=== PATIENT | male | born 1945 | race Caucasian/White ===

== ENCOUNTER 2018-02-10 15:48 | Emergency (ER) | payer OTHER ==
[~2018-02-10] VITALS: Ht 172.7 cm; Wt 78.5 kg
[~2018-02-10 15:48] MED LIST: ASPIR-LOW81 MG; AZOPT5 ML; BRIMONIDINE TAR10 ML; LISINOPRIL10 MG; LOTRIMIN TP; LUMIGAN2.5 ML OP; METFORMIN HCL500 MG PO; NABUMETONE500 MG; OSEL75CA PO; PROVENTIL3 ML/2.5 M IH; SIMVASTATIN20 MG; ZYNCOF 20-400120 ML PO
== END 2018-02-10 18:06 | disposition home or self-care (01) ==
LOC: ER 15:48
DX: S40.011A Contusion of right shoulder, initial encounter (principal); S00.83XA Contusion of other part of head, initial encounter; W18.39XA Other fall on same level, initial encounter; Y93.89 Activity, other specified; Y92.89 Other specified places as the place of occurrence of the external cause; Y99.8 Other external cause status

== ENCOUNTER 2020-01-12 16:58 | Emergency (ER) | payer OTHER ==
[~2020-01-12] VITALS: Ht 172.7 cm; Wt 74.8 kg
== END 2020-01-12 20:00 | disposition home or self-care (01) ==
LOC: ER 16:58
DX: R42 Dizziness and giddiness (principal); S06.0X0S Concussion without loss of consciousness, sequela; S10.83XS Contusion of other specified part of neck, sequela; W22.8XXS Striking against or struck by other objects, sequela

== ENCOUNTER 2020-09-20 09:03 | Emergency (ER) | payer OTHER ==
[~2020-09-20] VITALS: Ht 172.7 cm; Wt 77.1 kg
== END 2020-09-20 13:40 | disposition designated cancer center or children's hospital (05) ==
LOC: ER 09:03
DX: I63.89 Other cerebral infarction (principal); I10 Essential (primary) hypertension; R06.02 Shortness of breath

== ENCOUNTER 2020-10-17 09:57 | Emergency (ER) | payer OTHER ==
[~2020-10-17] VITALS: Ht 172.7 cm; Wt 68.0 kg
== END 2020-10-17 13:29 | disposition home or self-care (01) ==
LOC: ER 09:57
DX: R06.02 Shortness of breath (principal); I69.322 Dysarthria following cerebral infarction; I69.398 Other sequelae of cerebral infarction; I10 Essential (primary) hypertension; Z03.818 Encounter for observation for suspected exposure to other biological agents ruled out

== ENCOUNTER 2020-12-02 11:16 | Emergency (ER) | payer OTHER ==
[~2020-12-02] VITALS: Ht 172.7 cm; Wt 68.0 kg
[2020-12-02] MEDS ORDERED: PLAVIX75 MG PO (11:25)
[2020-12-02] MEDS ORDERED: COZAAR50 MG PO (11:26)
== END 2020-12-02 21:53 | disposition home or self-care (01) ==
LOC: ER 11:16
DX: S80.01XA Contusion of right knee, initial encounter (principal); M12.561 Traumatic arthropathy, right knee; W22.8XXA Striking against or struck by other objects, initial encounter; Y93.89 Activity, other specified; Y92.89 Other specified places as the place of occurrence of the external cause; Y99.8 Other external cause status

== ENCOUNTER 2021-04-03 10:27 | Emergency (ER) | payer OTHER ==
[~2021-04-03] VITALS: Ht 172.7 cm; Wt 68.0 kg
[~2021-04-03 10:27] MED LIST changes: +COZAAR50 MG PO; +PLAVIX75 MG PO
== END 2021-04-03 15:51 | disposition home or self-care (01) ==
LOC: ER 10:27
DX: M24.662 Ankylosis, left knee (principal); M13.862 Other specified arthritis, left knee; M25.562 Pain in left knee; Z74.01 Bed confinement status

== ENCOUNTER 2023-06-07 11:48 | Emergency (ER) | payer OTHER ==
[~2023-06-07] VITALS: Ht 172.7 cm; Wt 68.0 kg
[2023-06-07 12:24] LABS: HEMATOCRIT 46.4 % (39.0-48.0); MEAN CELL VOLUME 86.9 fL (80.0-100.00); MEAN CORPUSCULAR HGB CONC 34.5 g/dl (32.0-36.0); RED BLOOD COUNT 5.34 M/uL (4.00-6.00); RED CELL DISTRIBUTION WIDTH 14.1 % (11.5-14.5)
[2023-06-07 12:25] LABS: PLATELET COUNT 124 K/uL (150-450)
[2023-06-07 12:49] LABS: ALBUMIN 3.1 gm/dL (3.4-5.0); BILIRUBIN TOTAL 0.65 mg/dL (0.3-1.2); CALCIUM 8.9 mg/dL (8.5-10.1); CREATININE SERUM 0.73 mg/dL (0.70-1.30); GFR 104.74; GLOBULINA 3.9 G/DL (2.4-3.5); POTASSIUM 3.87 mEq/L (3.5-5.1)
[2023-06-07] MEDS ORDERED: PAXLOVID 300-11 EACH PO (13:27)
== END 2023-06-07 16:11 | disposition home or self-care (01) ==
LOC: ER 11:48
PROVIDERS: General Practice
DX: U07.1 COVID-19 (principal); Z86.73 Personal history of transient ischemic attack (TIA), and cerebral infarction without residual deficits; I10 Essential (primary) hypertension
CPT/HCPCS: 36415; 71250; 96365; 99284; J2930

== ENCOUNTER 2023-06-23 08:18 | Inpatient (IN) | payer OTHER ==
[~2023-06-23] VITALS: Ht 172.7 cm; Wt 68.0 kg
[~2023-06-23 08:18] MED LIST changes: +PAXLOVID 300-11 EACH PO
[2023-06-23 10:22] LABS: HEMATOCRIT 47.3 % (39.0-48.0); MEAN CELL VOLUME 87.4 fL (80.0-100.00); MEAN CORPUSCULAR HEMOGLOBIN 29.6 pg (27.00-32.0); MEAN CORPUSCULAR HGB CONC 33.9 g/dl (32.0-36.0); PLATELET COUNT 165 K/uL (150-450); RED BLOOD COUNT 5.42 M/uL (4.00-6.00); RED CELL DISTRIBUTION WIDTH 13.7 % (11.5-14.5)
[2023-06-23 10:50] LABS: INR 1.04; PARTIAL THROMBOPLASTIN TIME 30.8 SECONDS (22.0-34.0); PROTHROMBIN TIME 10.9 SECONDS (9.0-11.5)
[2023-06-23 11:08] LABS: CALCIUM 8.7 mg/dL (8.5-10.1); CREATININE SERUM 0.67 mg/dL (0.70-1.30); GFR 115.64; MAGNESIUM 2.1 mg/dL (1.8-2.4); POTASSIUM 3.59 mEq/L (3.5-5.1)
[2023-06-23 11:11] LABS: PHOSPHOROUS 1.7 mg/dL (2.5-4.9)
[2023-06-23 21:01] LABS: PH,URINE 5.5 (5.0-8.0); URINE APPEARANCE Clear; URINE BILIRRUBIN Negative (NEGATIVE); URINE COLOR Yellow; URINE GLUCOSE Negative (NEGATIVE); URINE LEUKOCYTE Negative; URINE NITRATE Negative; URINE PROTEIN Trace (NEGATIVE)
[2023-06-23 21:04] LABS: URINE BACTERIA 64.2 uL (0.0-1933); URINE EPITHELIAL CELLS 6.8 uL (0.0-38.8); URINE RBC 26.7 uL (0.0-20.8); URINE WBC 9.7 uL (0.0-23.2)
[2023-06-23 21:05] LABS: URINE BLOOD Trace
[2023-06-24 14:36] LABS: HEMATOCRIT 45.2 % (39.0-48.0); HEMOGLOBIN 15.2 g/dL (13-16.00); MEAN CELL VOLUME 86.5 fL (80.0-100.00); MEAN CORPUSCULAR HEMOGLOBIN 29.1 pg (27.00-32.0); MEAN CORPUSCULAR HGB CONC 33.7 g/dl (32.0-36.0); PLATELET COUNT 158 K/uL (150-450); RED BLOOD COUNT 5.23 M/uL (4.00-6.00); RED CELL DISTRIBUTION WIDTH 14.1 % (11.5-14.5)
[2023-06-24 20:45] LABS: HEMATOCRIT 42.4 % (39.0-48.0); HEMOGLOBIN 14.3 g/dL (13-16.00); MEAN CELL VOLUME 86.2 fL (80.0-100.00); MEAN CORPUSCULAR HGB CONC 33.6 g/dl (32.0-36.0); PLATELET COUNT 157 K/uL (150-450); RED BLOOD COUNT 4.93 M/uL (4.00-6.00); RED CELL DISTRIBUTION WIDTH 14.1 % (11.5-14.5)
[2023-06-24 21:10] LABS: ALBUMIN 2.9 gm/dL (3.4-5.0); BILIRUBIN TOTAL 1.27 mg/dL (0.3-1.2); CALCIUM 8.1 mg/dL (8.5-10.1); CKMB 2.2 NG/ML (0.5-3.6); CREATININE SERUM 0.78 mg/dL (0.70-1.30); GFR 97.03; GLOBULINA 2.9 G/DL (2.4-3.5); MAGNESIUM 1.7 mg/dL (1.8-2.4); PHOSPHOROUS 2.7 mg/dL (2.5-4.9); POTASSIUM 4.09 mEq/L (3.5-5.1); TOTAL PROTEIN 5.8 gm/dL (6.4-8.2)
[2023-06-25 06:54] LABS: CKMB 2.2 NG/ML (0.5-3.6)
[2023-06-27 07:54] LABS: HEMATOCRIT 44.2 % (39.0-48.0); MEAN CELL VOLUME 87.6 fL (80.0-100.00); MEAN CORPUSCULAR HEMOGLOBIN 29.7 pg (27.00-32.0); MEAN CORPUSCULAR HGB CONC 33.8 g/dl (32.0-36.0); PLATELET COUNT 140 K/uL (150-450); RED BLOOD COUNT 5.05 M/uL (4.00-6.00); RED CELL DISTRIBUTION WIDTH 13.4 % (11.5-14.5)
== END 2023-06-27 21:15 | disposition home or self-care (01) | DRG 282 ==
LOC: ER 08:18 → MEDJ 19:33
PROVIDERS: Emergency Medicine; General Practice; Internal Medicine; ADMIT Internal Medicine; ATTEND Internal Medicine
PROC: BR20ZZZ Computerized Tomography (CT Scan) of Cervical Spine (ICD-10-PCS; principal; 2023-06-23)
PROC: BW28ZZZ Computerized Tomography (CT Scan) of Head (ICD-10-PCS; 2023-06-23)
PROC: B24BZZZ Ultrasonography of Heart with Aorta (ICD-10-PCS; 2023-06-23)
PROC: 4A12X4Z Monitoring of Cardiac Electrical Activity, External Approach (ICD-10-PCS; 2023-06-23)
PROC: BW24ZZZ Computerized Tomography (CT Scan) of Chest and Abdomen (ICD-10-PCS; 2023-06-25)
DX: I21.A1 Myocardial infarction type 2 (principal); R56.9 Unspecified convulsions; I11.9 Hypertensive heart disease without heart failure; Z20.822 Contact with and (suspected) exposure to COVID-19; G30.9 Alzheimer's disease, unspecified; F02.80 Dementia in other diseases classified elsewhere, unspecified severity, without behavioral disturbance, psychotic disturbance, mood disturbance, and anxiety; Z74.01 Bed confinement status; E78.5 Hyperlipidemia, unspecified

== ENCOUNTER 2024-05-12 10:13 | Emergency (ER) | payer OTHER ==
[~2024-05-12] VITALS: Ht 167.6 cm; Wt 61.2 kg
[2024-05-12] MEDS ORDERED: PEPCID AC20 MG PO (10:33)
[2024-05-12 13:34] LABS: HEMATOCRIT 47.4 % (39.0-48.0); HEMOGLOBIN 15.7 g/dL (13-16.00); PLATELET COUNT 136 K/uL (150-450); RED BLOOD COUNT 5.39 M/uL (4.00-6.00); RED CELL DISTRIBUTION WIDTH 14.2 % (11.5-14.5)
[2024-05-12 13:42] LABS: CALCIUM 8.4 mg/dL (8.5-10.1); CREATININE SERUM 0.71 mg/dL (0.70-1.30); GFR 107.86; POTASSIUM 4.29 mEq/L (3.5-5.1)
[2024-05-12 13:53] LABS: URINE APPEARANCE Clear; URINE BILIRRUBIN Negative (NEGATIVE); URINE BLOOD Negative; URINE COLOR Yellow; URINE GLUCOSE Negative (NEGATIVE); URINE KETONE Negative (NEGATIVE); URINE LEUKOCYTE Negative; URINE NITRATE Negative; URINE PROTEIN Negative (NEGATIVE)
[2024-05-12 13:56] LABS: URINE BACTERIA 7.5 uL (0.0-1933); URINE RBC 28.5 uL (0.0-20.8); URINE WBC 3.5 uL (0.0-23.2)
[2024-05-12 14:13] LABS: URINE CAST 0.15 uL (0.0-1.40); URINE EPITHELIAL CELLS 0.4 uL (0.0-38.8)
== END 2024-05-12 17:21 | disposition home or self-care (01) ==
LOC: ER 10:13
PROVIDERS: General Practice
DX: R53.81 Other malaise (principal); J40 Bronchitis, not specified as acute or chronic; B34.9 Viral infection, unspecified; Z20.822 Contact with and (suspected) exposure to COVID-19; I10 Essential (primary) hypertension; E11.9 Type 2 diabetes mellitus without complications; Z79.84 Long term (current) use of oral hypoglycemic drugs

== ENCOUNTER 2024-05-26 02:03 | Emergency (ER) | payer OTHER ==
[~2024-05-26] VITALS: Ht 172.7 cm; Wt 68.0 kg
[~2024-05-26 02:03] MED LIST changes: +PEPCID AC20 MG PO
[2024-05-26] MEDS ORDERED: KEPPRA XR500 MG PO (02:47)
[2024-05-26] MEDS ORDERED: BENZONATATE100 MG PO (02:48)
[2024-05-26] MEDS ORDERED: SIMVASTATIN20 MG PO (02:48)
[2024-05-26] MEDS ORDERED: RINGERS SOLUTION,LACTATED 1,000 ML IV STA (04:45)
[2024-05-26] MEDS ORDERED: MEPERIDINE HCL/PF 25 MG/ML VIAL IM STA (04:46)
[2024-05-26] MEDS ORDERED: PROMETHAZINE HCL 25 MG/ML AMPUL IM STA (04:47)
[2024-05-26] MEDS ORDERED: HYOSCYAMINE SULFATE 0.125 MG TAB.SUBL SL ONE (05:00)
[2024-05-26 06:16] LABS: HEMATOCRIT 52.3 % (39.0-48.0); HEMOGLOBIN 17.5 g/dL (13-16.00); MEAN CELL VOLUME 87.4 fL (80.0-100.00); MEAN CORPUSCULAR HEMOGLOBIN 29.3 pg (27.00-32.0); MEAN CORPUSCULAR HGB CONC 33.5 g/dl (32.0-36.0); PLATELET COUNT 176 K/uL (150-450); RED BLOOD COUNT 5.99 M/uL (4.00-6.00); RED CELL DISTRIBUTION WIDTH 14.1 % (11.5-14.5)
[2024-05-26 06:35] LABS: CALCIUM 9.3 mg/dL (8.5-10.1); CREATININE SERUM 0.87 mg/dL (0.70-1.30); GFR 85.32; POTASSIUM 4.75 mEq/L (3.5-5.1)
[2024-05-26] MEDS ORDERED: PIPERACILLIN/TAZOBACTAM SODIUM 3.375 GM VIAL IV STA (07:02)
[2024-05-26 16:22] LABS: PH,URINE 6.5 (5.0-8.0); URINE APPEARANCE Clear; URINE BILIRRUBIN Negative (NEGATIVE); URINE BLOOD Small; URINE COLOR Yellow; URINE GLUCOSE Negative (NEGATIVE); URINE KETONE Negative (NEGATIVE); URINE LEUKOCYTE Negative; URINE NITRATE Negative; URINE PROTEIN Negative (NEGATIVE)
[2024-05-26 16:26] LABS: URINE BACTERIA 20.8 uL (0.0-1933); URINE EPITHELIAL CELLS 1.5 uL (0.0-38.8); URINE RBC 52.5 uL (0.0-20.8); URINE WBC 4.4 uL (0.0-23.2)
[2024-05-26 16:29] LABS: URINE CAST 0.14 uL (0.0-1.40)
[2024-05-26] MEDS ORDERED: PEPCID AC20 MG PO (19:57)
[2024-05-26] MEDS ORDERED: BACTRIM DS TAB1 EACH PO (19:57)
[2024-05-26] MEDS ORDERED: TAMS0.4C PO (19:57)
[2024-05-26 20:27] LABS: ABG PH 7.457 (7.35-7.45); ABG pCO2 31.4 mmHg (35-45); BASE EXCESS -1.2 mmol/l; BICARBONATE 21.7 mmol/l (23-25); SaO2 95.6 %; Tco2 22.6 mmol/l; allen test SATISFACTORY; puncture site RADIAL RIGHT
[2024-05-26 20:28] LABS: o2 21 %
== END 2024-05-27 01:18 | disposition home or self-care (01) ==
LOC: ER 02:03
PROVIDERS: General Practice
DX: S09.8XXA Other specified injuries of head, initial encounter (principal); X58.XXXA Exposure to other specified factors, initial encounter; Y93.89 Activity, other specified; Y92.89 Other specified places as the place of occurrence of the external cause; Y99.8 Other external cause status; N20.0 Calculus of kidney; K59.01 Slow transit constipation; R10.9 Unspecified abdominal pain
CPT/HCPCS: 36415; 71250; 74176; 82803; 96365; 96372; 99284; J2543; J3490 ×2

== ENCOUNTER 2024-07-22 00:08 | Emergency (ER) | payer OTHER ==
[~2024-07-22] VITALS: Ht 175.3 cm; Wt 72.6 kg
[~2024-07-22 00:08] MED LIST changes: +BACTRIM DS TAB1 EACH PO; +BENZONATATE100 MG PO; +KEPPRA XR500 MG PO; +SIMVASTATIN20 MG PO; +TAMS0.4C PO
[2024-07-22] MEDS ORDERED: HYDROCODONE/CHLORPHEN P-STIREX 5 ML ML PO STA (02:24)
[2024-07-22 03:02] LABS: HEMATOCRIT 49.4 % (39.0-48.0); HEMOGLOBIN 16.4 g/dL (13-16.00); MEAN CELL VOLUME 87.3 fL (80.0-100.00); MEAN CORPUSCULAR HGB CONC 33.2 g/dl (32.0-36.0); RED BLOOD COUNT 5.66 M/uL (4.00-6.00); RED CELL DISTRIBUTION WIDTH 14.3 % (11.5-14.5)
[2024-07-22 03:04] LABS: PLATELET COUNT 129 K/uL (150-450)
== END 2024-07-22 08:22 | disposition home or self-care (01) ==
LOC: ER 00:08
DX: R53.81 Other malaise (principal); J06.9 Acute upper respiratory infection, unspecified; Z20.822 Contact with and (suspected) exposure to COVID-19; I10 Essential (primary) hypertension

== ENCOUNTER 2024-08-22 10:08 | Emergency (ER) | payer OTHER ==
[~2024-08-22] VITALS: Ht 172.7 cm; Wt 86.2 kg
[2024-08-22] MEDS ORDERED: LEVALBUTEROL HCL 1.25 MG/3 ML SOLUTION IH ONE (10:45)
[2024-08-22] MEDS ORDERED: METHYLPREDNISOLONE SOD SUCC 40 MG VIAL IV ONE (10:45)
[2024-08-22 10:56] LABS: ABG PH 7.441 (7.35-7.45); ABG PO2 115.5 mmHg (80-100); ABG pCO2 35.1 mmHg (35-45); BASE EXCESS -0.2 mmol/l; BICARBONATE 23.4 mmol/l (23-25); SaO2 98.7 %; Tco2 24.4 mmol/l
[2024-08-22] MEDS ORDERED: PIPERACILLIN/TAZOBACTAM SODIUM 3.375 GM VIAL IV ONE (11:00)
[2024-08-22 11:18] LABS: HEMATOCRIT 48.5 % (39.0-48.0); MEAN CELL VOLUME 87.8 fL (80.0-100.00); MEAN CORPUSCULAR HEMOGLOBIN 28.9 pg (27.00-32.0); MEAN CORPUSCULAR HGB CONC 32.9 g/dl (32.0-36.0); RED BLOOD COUNT 5.53 M/uL (4.00-6.00); RED CELL DISTRIBUTION WIDTH 14.9 % (11.5-14.5)
[2024-08-22 11:20] LABS: PLATELET COUNT 110 K/uL (150-450)
[2024-08-22 11:52] LABS: ALBUMIN 2.9 gm/dL (3.4-5.0); BILIRUBIN TOTAL 0.63 mg/dL (0.3-1.2); CALCIUM 8.1 mg/dL (8.5-10.1); CREATININE SERUM 0.72 mg/dL (0.70-1.30); GFR 105.85; GLOBULINA 3.6 G/DL (2.4-3.5); POTASSIUM 3.32 mEq/L (3.5-5.1); TOTAL PROTEIN 6.5 gm/dL (6.4-8.2)
[2024-08-22 12:05] LABS: INR 1.1; PARTIAL THROMBOPLASTIN TIME 31.1 SECONDS (22.0-34.0); PROTHROMBIN TIME 11.9 SECONDS (9.0-11.5)
[2024-08-22 12:55] LABS: allen test SATISFACTORY; o2 32 %; puncture site RADIAL LEFT
[2024-08-22 13:21] LABS: PH,URINE 6.5 (5.0-8.0); URINE APPEARANCE Clear; URINE BILIRRUBIN Negative (NEGATIVE); URINE BLOOD Negative; URINE COLOR Yellow; URINE GLUCOSE Negative (NEGATIVE); URINE KETONE Negative (NEGATIVE); URINE LEUKOCYTE Small; URINE NITRATE Negative; URINE PROTEIN Negative (NEGATIVE); URINE UROBILINOGEN 0.2 E.U./dl
[2024-08-22 13:26] LABS: URINE BACTERIA 17.1 uL (0.0-1933); URINE EPITHELIAL CELLS 4.9 uL (0.0-38.8); URINE RBC 14.4 uL (0.0-20.8); URINE WBC 9.6 uL (0.0-23.2)
[2024-08-22] MEDS ORDERED: MEDROLPACK PO (14:18)
[2024-08-22] MEDS ORDERED: PROTONIX40 MG PO (14:18)
[2024-08-22] MEDS ORDERED: LEVALBUTER0.63 MG/3 IH (14:18)
[2024-08-22] MEDS ORDERED: AZITHROMYCIN500 MG PO (14:18)
== END 2024-08-22 16:39 | disposition home or self-care (01) ==
LOC: ER 10:08
PROVIDERS: General Practice
DX: R53.81 Other malaise (principal); R05.9 Cough, unspecified
CPT/HCPCS: 36415; 71045; 82803; 94640; 96365; 99283; J2543; J3490

== ENCOUNTER 2025-02-08 14:48 | Inpatient (IN) | payer OTHER ==
[~2025-02-08] VITALS: Ht 152.4 cm; Wt 90.7 kg
[~2025-02-08 14:48] MED LIST changes: +AZITHROMYCIN500 MG PO; +LEVALBUTER0.63 MG/3 IH; +MEDROLPACK PO; +PROTONIX40 MG PO
--- NOTE | 2025-02-08 15:14 | NUR ---
SE RECIBE PACIENTE ALERTA Y ORIENTADO X3 EN AMBULANCIA. EL MISMO REFIERE DOLOR Y MALESTAL GENERAL. S/V OXIGENACION EN 91 .PACIENTE EN FRANCISCA CON BARANDAS ELEVADAS EN ESPERA DE EVALUACION MEDICA.
[2025-02-08] MEDS ORDERED: ACETAMINOPHEN 500 MG GEL..CAP PO ONE ×2 (16:49→17:00)
[2025-02-08] MEDS ORDERED: 0.9 % SODIUM CHLORIDE 1,000 ML IV SCH ×2 (17:00→21:30)
[2025-02-08 17:09] LABS: BASO % 0.4 % (0.1-1.2); EOS # 0.01 (0.04-0.54); EOS % 0.1 % (0.7-7.0); LYMPH # 0.91 (1.18-3.74); LYMPH % 10.6 % (19.3-53.1); MEAN PLATELET VOLUME 9.70 fl (9.4-12.4); MONO # 0.84 (0.24-0.82); MONO % 9.8 % (4.7-12.5); NEUT # 6.69 (1.56-6.13); NEUT % 78.3 % (34.0-71.1); RED CELL DISTRIBUTION WIDTH 13.9 % (11.6-14.4)
--- NOTE | 2025-02-08 17:16 | NUR ---
SE ORIENT A APTE SOBRE TX MEDICO Y EL MISMO REFIERE ENTENDER. SE COLOCA H/L EN BRAZO DERECHO, SE RECOLECTAN MUESTRAS DE LAB Y SE ADMINISTRAN MEDICAMENTOS ANDRES ORDEN MEDICA BAJO MEDIDAS ASEPTICAS.
[2025-02-08 17:28] LABS: ABG PH 7.441 (7.35-7.45); ABG PO2 78.3 mmHg (80-100); BICARBONATE 21.5 mmol/l (23-25)
[2025-02-08 17:39] LABS: ALT/SGPT 757.0 U/L (12-78); AST/SGOT 467.0 U/L (15-37); BILIRUBIN TOTAL 4.91 mg/dL (0.3-1.2); BUN CREA RATIO 16.0 (7.0-25.0); CREATININE SERUM 0.94 mg/dL (0.70-1.30); GFR 77.82; GLOBULINA 3.9 G/DL (2.4-3.5); GLUCOSE FASTING 110.0 mg/dL (65-100); OSMOLALITY SERUM 286.0 MOSM/KG (275-295)
[2025-02-08 18:15] LABS: COVID-19 AG NEGATIVE (NEGATIVE)
[2025-02-08 18:46] LABS: ALT/SGPT 762.0 U/L (12-78); AST/SGOT 464.0 U/L (15-37); BILIRUBIN TOTAL 4.73 mg/dL (0.3-1.2); BILIRUBIN,CONJUGATED 3.11 mg/dL (0.0-0.2)
[2025-02-08 19:37] LABS: o2 21 %
[2025-02-08 20:20] LABS: URINE APPEARANCE Clear; URINE BILIRRUBIN Large (NEGATIVE); URINE BLOOD Negative; URINE COLOR Dark Yellow; URINE GLUCOSE Negative (NEGATIVE); URINE KETONE Trace (NEGATIVE); URINE LEUKOCYTE Small; URINE NITRATE Positive; URINE PROTEIN 30 (NEGATIVE)
[2025-02-08 20:23] LABS: URINE BACTERIA 13.2 uL (0.0-1933); URINE EPITHELIAL CELLS 9.2 uL (0.0-38.8); URINE RBC 55.4 uL (0.0-20.8); URINE WBC 8.3 uL (0.0-23.2)
[2025-02-08 20:44] LABS: URINE CAST 0.29 uL (0.0-1.40); URINE UROBILINOGEN 4.0 E.U./dl
[2025-02-08] MEDS ORDERED: LevETIRAcetam 500 MG TAB. PO SCH (21:36)
[2025-02-08] MEDS ORDERED: CEFTRIAXONE SODIUM 2,000 MG in 0.9 % SODIUM CHLORIDE 100 ML IV SCH (21:37)
[2025-02-08] MEDS ORDERED: FAMOTIDINE/PF 20 MG in 0.9 % SODIUM CHLORIDE 8 ML IV PUSH SCH (21:37)
[2025-02-08] MEDS ORDERED: ACETAMINOPHEN 500 MG GEL..CAP PO PRN (21:45)
[2025-02-09 00:22] VITALS: BP 113/65; O2SAT 95
[2025-02-09 01:02] VITALS: BP 166/70; O2SAT 96
[2025-02-09 06:43] LABS: INR 1.16
[2025-02-09 08:00] VITALS: BP 146/83; O2SAT 95
[2025-02-09] MEDS ORDERED: GABAPENTIN 100 MG CAPSULE PO SCH (09:00)
[2025-02-09] MEDS ORDERED: LOSARTAN POTASSIUM 50 MG TABLET PO SCH (09:00)
[2025-02-09 18:21] VITALS: BP 161/85; O2SAT 96
[2025-02-10 00:25] VITALS: BP 156/90; O2SAT 95
[2025-02-10 08:19] VITALS: BP 121/68; BP 160/98; O2SAT 94; O2SAT 98
[2025-02-10] MEDS ORDERED: DEXTROSE 5 %-0.45 % SOD CHLORD 1,000 ML IV SCH (13:30)
[2025-02-10 15:18] LABS: BASO % 0.2 % (0.1-1.2); EOS # 0.01 (0.04-0.54); EOS % 0.1 % (0.7-7.0); LYMPH # 0.88 (1.18-3.74); LYMPH % 10.3 % (19.3-53.1); MEAN PLATELET VOLUME 11.50 fl (9.4-12.4); MONO # 0.51 (0.24-0.82); MONO % 6.0 % (4.7-12.5); NEUT # 7.03 (1.56-6.13); NEUT % 82.6 % (34.0-71.1); RED CELL DISTRIBUTION WIDTH 14.1 % (11.6-14.4)
[2025-02-10 15:36] LABS: INR 1.11
[2025-02-10 15:57] LABS: ALT/SGPT 295.0 U/L (12-78); AST/SGOT 73.0 U/L (15-37); BILIRUBIN TOTAL 1.17 mg/dL (0.3-1.2); BILIRUBIN,CONJUGATED 0.51 mg/dL (0.0-0.2); BUN CREA RATIO 19.0 (7.0-25.0); CREATININE SERUM 0.57 mg/dL (0.70-1.30); GFR 138.61; GLOBULINA 3.1 G/DL (2.4-3.5); GLUCOSE FASTING 101.0 mg/dL (65-100); OSMOLALITY SERUM 285.0 MOSM/KG (275-295)
[2025-02-10 18:33] VITALS: BP 138/74; O2SAT 96
[2025-02-11 00:21] VITALS: BP 150/79; O2SAT 94
[2025-02-11 11:14] VITALS: BP 139/80; BP 144/83; O2SAT 95; O2SAT 97
[2025-02-11] MEDS ORDERED: AMOX-CLAV 875-1 EACH PO (11:21)
[2025-02-14 09:08] LABS: hav igm Negative (Negative); hep b c Negative (Negative); hep b s ag Negative (Negative)
== END 2025-02-11 13:47 | disposition home or self-care (01) | DRG 690 ==
LOC: ER 14:48 → MEDJ 21:44
PROVIDERS: General Practice; Internal Medicine Infectious Disease; ADMIT Internal Medicine; ATTEND Internal Medicine
PROC: BT43ZZZ Ultrasonography of Bilateral Kidneys (ICD-10-PCS; principal; 2025-02-08)
PROC: BW4FZZZ Ultrasonography of Neck (ICD-10-PCS; 2025-02-10)
DX: N39.0 Urinary tract infection, site not specified (principal); E80.6 Other disorders of bilirubin metabolism; R74.01 Elevation of levels of liver transaminase levels; I10 Essential (primary) hypertension; E11.9 Type 2 diabetes mellitus without complications; E78.5 Hyperlipidemia, unspecified; Z74.01 Bed confinement status; Z87.891 Personal history of nicotine dependence